=== PATIENT | female | born 1980 | race Caucasian/White ===

== ENCOUNTER 2016-08-14 13:50 | Emergency (ER) | payer MEDICAID ==
[2016-08-14] MEDS ORDERED: ONDANSETRON 4 MG VIAL ONE (16:39)
[2016-08-14] MEDS ORDERED: SODIUM CHLORIDE 0.9% 1,000 ML ONE (16:39)
[2016-08-14] MEDS ORDERED: MORPHINE 4 MG/ML SYR ONE (16:39)
== END 2016-08-14 19:37 | disposition home or self-care (01) ==
LOC: ER 13:50
DX: K63.89 Other specified diseases of intestine (principal); R10.9 Unspecified abdominal pain; R19.7 Diarrhea, unspecified; Z79.899 Other long term (current) drug therapy; F17.210 Nicotine dependence, cigarettes, uncomplicated
CPT/HCPCS: 36415; 74177; 80053; 81003; 83690; 84703; 85025; 96361; 96374; 96375